=== PATIENT | female | born 1955 | race Caucasian/White ===

== ENCOUNTER 2022-07-06 14:11 | Emergency (ER) | payer BC, MEDICARE ==
[2022-07-06 14:31] VITALS: BP 133/59; PULSE 81; O2SAT 97
[2022-07-06 15:04] LABS: Hematocrit 38.6 % (35-47); Hemoglobin 12.3 g/dL (12.0-16.0); Mean Cell Volume 84.5 fL (78-100); Mean Corpuscular Hemoglobin 26.9 pg (26-32); Mean Corpuscular Hgb Concent. 31.9 g/dL (32-36); Mean Platelet Volume 9.6 fL (7.5-11.0); Platelet Count 355 x10^3/uL (150-450); Red Blood Count 4.57 x10^6/uL (4.1-5.4); Red Cell Distribution Width 14.4 % (11.5-14.0); White Blood Count 11.5 x10^3/uL (4.0-10.5)
--- NOTE | 2022-07-06 15:14 | ERPHSYRPT ---
- History of Present Illness Time Seen by Provider: 07/06/22 14:15 Source: patient Exam Limitations: no limitations Patient Subjective Stated Complaint: pt here for urinary rention, she has not void since last night, she teeth removed last week , some nasuea and vomiting l ast night ,non today, able to keep fluids down Triage Nursing Assessment: pt alert, resp easy, skin w/d/p, abd distended, no edema noted, face mask in place Physician History: 67 years old female with history of diabetes mellitus presented to the ER with difficulty urination since last night. Patient reports she is having fullness pressure in the suprapubic area and is unable to urinate despite drinking. She also report having nausea and an episode of vomiting yesterday but no nausea vomiting or upper abdominal pain at all. No fever or chills reported. Timing/Duration: today, gradual onset Quality: fullness, pressure Onset Location: suprapubic Pain Radiation: none Severity of Pain-Max: mild Severity of Pain-Current: mild Sexual intercourse history: non-contributory Modifying Factors: Improves With: nothing Allergies/Adverse Reactions: Penicillins Allergy (Verified 07/06/22 14:32) Hx Influenza Vaccination/Date Given: Yes Hx Pneumococcal Vaccination/Date Given: Yes Travel Risk - International Travel Have you traveled outside of the country in past 3 weeks: No - Coronavirus Screening Are you exhibiting any of the following symptoms?: No Close contact with a COVID-19 positive Pt in past 14-21 Days: No - Vaccine Status Have you recieved a Covid-19 vaccination: Yes 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 - Review of Systems Constitutional: No Symptoms Ears, Nose, & Throat: No Symptoms Respiratory: No Symptoms Cardiac: No Symptoms Abdominal/Gastrointestinal: Abdominal Pain, Nausea Genitourinary Symptoms: Dysuria, Urinary Retention Musculoskeletal: No Symptoms Skin: No Symptoms Neurological: No Symptoms Psychological: No Symptoms Endocrine: No Symptoms Hematologic/Lymphatic: No Symptoms - Past Medical History Pertinent Past Medical History: Yes Cardiac History: Coronary Artery Disease Endocrine Medical History: Diabetes Type II - Past Surgical History Past Surgical History: Yes Cardiac: Cardiac Catheterization, Cardiac Stent Musculoskeletal: Orthopedic Surgery Other Surgical History: 2 toes amputee - Social History Smoking Status: Never smoker Exposure to second hand smoke: No Drug Use: none Patient Lives Alone: No - Nursing Vital Signs Nursing Vital Signs: Initial Vital Signs Temperature 97.9 F 07/06/22 14:27 Pulse Rate 81 07/06/22 14:27 Respiratory Rate 18 07/06/22 14:27 Blood Pressure 133/59 07/06/22 14:27 O2 Sat by Pulse Oximetry 97 07/06/22 14:27 Pain Scale Pain Intensity 4 - Physical Exam General Appearance: no apparent distress, alert Eye Exam: PERRL/EOMI Ears, Nose, Throat Exam: normal ENT inspection Neck Exam: normal inspection, full range of motion Respiratory Exam: normal breath sounds, lungs clear Cardiovascular Exam: regular rate/rhythm, normal heart sounds Gastrointestinal/Abdomen Exam: soft, normal bowel sounds, No tenderness, No distention, No guarding Back Exam: normal inspection, normal range of motion Extremity Exam: normal inspection, normal range of motion Neurologic Exam: alert, oriented x 3, cooperative Skin Exam: normal color SpO2 Interpretation: normal SpO2: 97 O2 Delivery: Room Air Ordered Tests: Active Orders 24 hr Category Date Time Status CBC W DIFF Stat Lab 07/06/22 15:02 Completed CMP Stat Lab 07/06/22 15:02 Completed CULTURE,URINE Stat Lab 07/06/22 15:05 Received Manual Differential NC Stat Lab 07/06/22 15:02 Completed UA W/RFX CULTURE Stat Lab 07/06/22 15:05 Completed Medication Summary Discontinued Medications Generic Name Dose Route Start Last Admin Trade Name Morganq PRN Reason Stop Dose Admin Levofloxacin Confirm 07/06/22 17:00 Levofloxacin 500 Mg Tablet Administered 07/06/22 17:01 Dose 500 mg .ROUTE .STK-MED ONE Levofloxacin 500 mg 07/06/22 17:01 07/06/22 17:04 Levofloxacin 250 Mg Tab PO 07/06/22 17:02 500 mg STAT ONE Administration Lab/Rad Data: Laboratory Result Diagrams 07/06/22 15:02 07/06/22 15:02 Laboratory Results 07/06/22 07/06/22 07/06/22 Range/Units 15:05 15:02 15:02 WBC 11.5 H (4.0-10.5) x10^3/uL RBC 4.57 (4.1-5.4) x10^6/uL Hgb 12.3 (12.0-16.0) g/dL Hct 38.6 (35-47) % MCV 84.5 (78-100) fL MCH 26.9 (26-32) pg MCHC 31.9 L (32-36) g/dL RDW 14.4 H (11.5-14.0) % Plt Count 355 (150-450) x10^3/uL MPV 9.6 (7.5-11.0) fL Sodium 134 L (137-145) mmol/L Potassium 3.6 (3.5-5.1) mmol/L Chloride 98 (98-107) mmol/L Carbon Dioxide 25 (22-30) mmol/L Anion Gap 14.8 (5-15) MEQ/L BUN 13 (7-17) mg/dL Creatinine 0.55 (0.52-1.04) mg/dL Estimated GFR > 60.0 ML/MIN Glucose 233 H (74-106) mg/dL Calcium 8.8 (8.4-10.2) mg/dL Total Bilirubin 1.30 (0.2-1.3) mg/dL AST 26 (14-36) U/L ALT 18 (0-35) U/L Alkaline Phosphatase 89 (38-126) U/L Serum Total Protein 6.8 (6.3-8.2) g/dL Albumin 4.0 (3.5-5.0) g/dL Urinalys Dipstick Clnc MAIN LAB Urine Color LT.YELLOW (YELLOW) Urine Appearance CLOUDY (CLEAR) Urine pH 5.5 (5-6) Ur Specific [place] >=1.030 (1.005-1.025) POC Urine Protein Conf 100 (Negative) Urine Ketones TRACE (NEGATIVE) Urine Nitrite POSITIVE (NEGATIVE) Urine Bilirubin SMALL (NEGATIVE) Urine Urobilinogen 0.2 (0-1) mg/dL Urine Leukocytes TRACE (NEGATIVE) Urine WBC (Auto) 51-100 (0-5) /HPF Urine RBC (Auto) >101 (0-2) /HPF U Epithel Cells (Auto) NONE (FEW) /HPF Urine Bacteria (Auto) MANY (NEGATIVE) /HPF Urine RBC LARGE (0-5) Pepe/ul Urine Mucus (Auto) MANY (NEGATIVE) /HPF Ur Culture Indicated? YES Urine Glucose NEGATIVE (NEGATIVE) mg/dL - Progress Progress: improved Air Movement: good Progress Note: 07/06/22 17:13 Patient does not have any urinary retention confirmed with catheter placement. She has normal white count, grossly unremarkable chemistries and normal renal failure. Does have UTI and started on antibiotics. Outpatient follow-up recom mended. Do not think she needs imaging or any other work-up and is stable for discharge. 07/06/22 17:14 Blood Culture(s) Obtained: No Antibiotics given: Yes Counseled pt/family regarding: lab results, diagnosis, need for follow-up - Departure Departure Disposition: Home Clinical Impression: Acute cystitis Condition: Stable Critical Care Time: No Referrals: ANTIONE PEREZ [Primary Care Provider] - Follow up/PCP as directed (1-2 days for reevaluation) Instructions: Urinary Tract Infection, Adult (DC) Additional Instructions: Take Tylenol as needed for pain. Drink plenty of fluids to keep yourself well- hydrated. Follow-up with primary care for reevaluation. Return to ER for worsening suprapubic discomfort, difficulty urination, fever chills/vomiting etc. Prescriptions: Levofloxacin [Levaquin 500 MG Tablet] 500 mg PO DAILY #7 tablet
[2022-07-06 15:17] LABS: Appearance CLOUDY (CLEAR); Bilirubin SMALL (NEGATIVE); Glucose NEGATIVE (NEGATIVE); Ketones TRACE (NEGATIVE); Ph 5.5 (5-6); RBC LARGE Ery/ul (0-5); Specific Gravity >=1.030 (1.005-1.025)
[2022-07-06 15:18] LABS: Dipstick done @ ? MAIN LAB; Nitrite POSITIVE (NEGATIVE); Protein,Urine Dip 100 (Negative); Urobilinogen 0.2 mg/dL (0-1)
[2022-07-06 15:20] LABS: ALKALINE PHOSPHATASE 89 U/L (38-126); ANION GAP 14.8 MEQ/L (5-15); BLOOD UREA NITROGEN 13 mg/dL (7-17); CHLORIDE 98 mmol/L (98-107); Calcium 8.8 mg/dL (8.4-10.2); Carbon Dioxide 25 mmol/L (22-30); Creatinine 1 0.55 mg/dL (0.52-1.04); EST GLOMERULAR FILTRATION RATE > 60.0 ML/MIN; Glucose 233 mg/dL (74-106); Potassium 3.6 mmol/L (3.5-5.1); SGOT/AST 26 U/L (14-36); SGPT/ALT 18 U/L (0-35); SODIUM 134 mmol/L (137-145); Total Protein 6.8 g/dL (6.3-8.2)
[2022-07-06 15:30] LABS: Bacteria MANY /HPF (NEGATIVE); Mucus MANY /HPF (NEGATIVE); WBC 51-100 /HPF (0-5)
[2022-07-06 15:32] LABS: RBC >101 /HPF (0-2); Urine Cultured Indicated? YES
[2022-07-06] MEDS ORDERED: Levofloxacin 500 MG Tablet ONE (17:00)
[2022-07-06] MEDS ORDERED: Levofloxacin 250MG Tablet PO ONE (17:01)
[2022-07-06 18:38] LABS: Eosinophil 1 % (0.00-3.0); Lymphocytes 3 % (24-44); Monocyte 4 % (0.0-12.0); Platelet Estimate NORMAL (NORMAL); Total Cells Counted 100
== END 2022-07-06 17:23 | disposition home or self-care (01) ==
LOC: ED 14:11
DX: N30.00 Acute cystitis without hematuria (principal); R10.30 Lower abdominal pain, unspecified; E11.9 Type 2 diabetes mellitus without complications
CPT/HCPCS: 36415; 80053; 81015; 85025; 87077; 87086; 87186; 99283; P9612; A9270-GY